=== PATIENT | female | born 1960 | race Caucasian/White ===

== ENCOUNTER → 2019-05-11 | Outpatient (CLI) | payer OTHER ==
[~2019-05-11] MED LIST: ALPR0.25 PO; BUPIVACAINE MPF 0.25% 10 ML VIAL. ONE; CETI10TA30 PO; DEXT20TA2 PO; DIAZ2TAB PO; FLUT9.9S NS; GLIP5TAB10 PO; HYDR-2769 PO; LIDOCAINE 1% PF 30 ML VIAL. ONE; METF10007 PO; TRAZ-120 PO; VILA40TA PO
[2019-05-11 15:28] VITALS: BP 108/71
== END ==
LOC: SURG 13:03
PROVIDERS: ATTEND Anesthesiology Pain Medicine
DX: M79.18 Myalgia, other site (principal)
CPT/HCPCS: 20553; J2001; J3490